=== PATIENT | female | born 1970 | race American Indian/Alaskan Native ===

== ENCOUNTER 2021-11-22 00:25 | Emergency (ER) | payer MEDICARE ==
[2021-11-22 05:43] LABS: Basophils # (Auto) 0.1 K/mm3 (0.0-0.1); Basophils % (Auto) 0.7 % (0.0-1.8); Eosinophils # (Auto) 0.1 K/mm3 (0.0-0.4); Eosinophils % (Auto) 1.6 % (0.0-4.3); Hematocrit 40.6 % (30.3-42.9); Hemoglobin 13.6 gm/dl (10.1-14.3); Lymphocytes # (Auto) 2.5 K/mm3 (1.2-5.4); Lymphocytes % (Auto) 26.7 % (13.4-35.0); Mean Corpuscular HGB Conc 33 % (30-34); Mean Corpuscular Volume 89 fl (79-97); Monocytes # (Auto) 0.5 K/mm3 (0.0-0.8); Monocytes % (Auto) 5.2 % (0.0-7.3); Platelet Count 236 K/mm3 (140-440); Red Blood Count 4.55 M/mm3 (3.65-5.03); Red Cell Distribution Width 13.1 % (13.2-15.2)
[2021-11-22 06:08] LABS: Alanine Aminotransferase 16 units/L (7-56); Albumin 4.7 g/dL (3.9-5); Blood Urea Nitrogen 17 mg/dL (7-17); Calcium 9.6 mg/dL (8.4-10.2); Hemolysis Index 19
[2021-11-22 06:09] LABS: BUN/Creatinine Ratio 28
--- NOTE | 2021-11-22 08:09 | Emergency Department Report ---
ED General Adult HPI - General Chief complaint: Abdominal Pain Stated complaint: NOT SAFE AT HOME Time Seen by Provider: 11/22/21 07:15 Source: patient Mode of arrival: Ambulatory Limitations: Other - History of Present Illness Initial comments: Patient is 51 years old female with history of asthma and pancreatitis. Patient is deaf and mute. I communicated to the patient using iPad typing. Patient informed that she is here for abdominal pain for 2 weeks. Patient is pointing to her left upper quadrant. She denied any nausea or vomiting. Patient also denied any fever or chills. She also stated that she is not safe at home and she asking for [facility]. - Related Data Allergies Allergy/AdvReac Type Severity Reaction Status Date / Time No Known Allergies Allergy Unverified 11/22/21 05:04 ED Review of Systems ROS: Stated complaint: NOT SAFE AT HOME Other details as noted in HPI Comment: All other systems reviewed and negative Constitutional: denies: chills, fever Respiratory: denies: cough, shortness of breath Cardiovascular: denies: chest pain Gastrointestinal: abdominal pain. denies: nausea, vomiting, diarrhea, constipat ion, hematemesis Psychiatric: denies: depression, auditory hallucinations, visual hallucinations, homicidal thoughts, suicidal thoughts ED Past Medical Hx - Past Medical History Previous Medical History?: Yes Hx Asthma: Yes Additional medical history: Pancreatitis. Hearing impainred. - Surgical History Past Surgical History?: Yes Hx Cholecystectomy: Yes Additional Surgical History: Hysterectomy - Social History Smoking Status: Never Smoker Substance Use Type: None ED Physical Exam - General Limitations: Other General appearance: alert, in no apparent distress - Head Head exam: Present: atraumatic, normocephalic, normal inspection - ENT ENT exam: Present: normal exam, normal orophraynx, mucous membranes moist - Neck Neck exam: Present: normal inspection, full ROM. Absent: tenderness, me ningismus - Respiratory Respiratory exam: Present: normal lung sounds bilaterally - Cardiovascular Cardiovascular Exam: Present: regular rate, normal rhythm, normal heart sounds - GI/Abdominal GI/Abdominal exam: Present: soft, normal bowel sounds. Absent: distended, tenderness, guarding, rebound, rigid, organomegaly, mass, bruit, pulsatile mass, hernia - Extremities Exam Extremities exam: Present: normal inspection, full ROM, normal capillary refill. Absent: tenderness - Back Exam Back exam: Present: normal inspection, full ROM. Absent: CVA tenderness (R), CVA tenderness (L) - Neurological Exam Neurological exam: Present: alert, oriented X3, CN II-XII intact, normal gait, reflexes normal. Absent: motor sensory deficit - Psychiatric Psychiatric exam: Present: normal mood - Skin Skin exam: Present: warm, intact, normal color ED Course Vital Signs 11/22/21 04:12 Temperature 98.3 F Pulse Rate 93 H Respiratory 18 Rate Blood Pressure 136/82 O2 Sat by Pulse 98 Oximetry ED Medical Decision Making - Lab Data Result diagrams: 11/22/21 05:25 11/22/21 05:25 - Medical Decision Making Patient is 51 years old female with history of asthma and pancreatitis. Patient is deaf and mute. I communicated to the patient using iPad typing. Patient informed that she is here for abdominal pain for 2 weeks. Patient is pointing to her left upper quadrant. She denied any nausea or vomiting. Patient also denied any fever or chills. She also stated that she is not safe at home and she asking for [facility]p. Patient remained stable in the ER with stable vital sign. Labs reviewed and is unremarkable. Patient has been evaluated by or social service coordinator and given resources. Patient is currently denying any suicidal or homicidal ideation. Patient advised to follow-up with her primary care physician in the next 2 to 3 days and to return to the ER if she develop any new symptoms. Critical care attestation.: If time is entered above; I have spent that time in minutes in the direct care of this critically ill patient, excluding procedure time. ED Disposition Clinical Impression: Acute abdominal pain, Housing instability, currently housed Disposition: HOME / SELF CARE / HOMELESS Is pt being admited?: No Condition: Stable Instructions: Abdominal Pain (ED), Abdominal Pain, Adult, [id number] Referrals: BRIANA HUTCHINS [Other] - 3-5 Days
[2021-11-22 10:10] LABS: Bilirubin,Urine NEG (Negative); Blood,Urine NEG (Negative); Color,Urine Yellow (Yellow); Protein,Urine <15 mg/dL mg/dL (Negative); Urobilinogen,Urine < 2.0 mg/dL (<2.0)
[2021-11-22 10:13] LABS: Bacteria,Urine 1+ /HPF (Negative)
[2021-11-22] MEDS ORDERED: KETOROLAC 60 MG/2 ML INJ IM ONE (10:21)
[2021-11-22 13:46] VITALS: BP 124/76
== END 2021-11-22 13:44 | disposition home or self-care (01) ==
LOC: ED 00:25
DX: R10.12 Left upper quadrant pain (principal); J45.909 Unspecified asthma, uncomplicated; Z90.49 Acquired absence of other specified parts of digestive tract; Z59.811 Housing instability, housed, with risk of homelessness; Z90.710 Acquired absence of both cervix and uterus
CPT/HCPCS: 36415; 80053; 81001; 83690; 84703; 85025; 96372; 99283